=== PATIENT | female | born 1930 | race African-American/Black ===

== ENCOUNTER 2016-09-03 11:37 | Emergency (ER) | payer MEDICARE, MEDICAID ==
[~2016-09-03] VITALS: Ht 172.7 cm; Wt 68.0 kg
[~2016-09-03 11:37] MED LIST: IBUPROFEN600 MG ORAL
--- NOTE | 2016-09-03 12:55 | Emergency Room Report ---
History of Present Illness General Chief Complaint: Flu Like Symptoms Present Illness HPI The patient is an 86-year-old female presenting for one week of productive cough. The patient denies sick contacts or recent travel. The patient denies any pain. The patient denies any pulmonary medical history. The patient denies any other symptoms including fever, chills, night sweats, weight loss, hemoptysis, chest pain, shortness of breath (MERLIN EDWARDS P.A.) Allergies: Coded Allergies: CODEINE (Unverified Allergy, Unknown, 02/08/14) Patient History Past Medical History: see triage record Pertinent Family History: none Social History: Reports: smoking Reviewed Nursing Documentation: PMH: Agreed, PSxH: Agreed (MERLIN EDWARDS P.A.) Nursing Documentation-PMH Hx Gastrointestinal Problems: Yes - pt has transhepatic biliary implant (MERLIN EDWARDS P.A.) Review of Systems All Other Systems: negative except mentioned in HPI (MERLIN EDWARDS P.A.) Physical Exam Vital Signs Date Time Temp Pulse Resp B/P Pulse Ox O2 Delivery O2 Flow Rate FiO2 09/03/16 11:46 98.2 75 20 124/75 97 Room Air Sp02 EP Interpretation: reviewed, normal General Appearance: no apparent distress, alert, GCS 15, non-toxic Head: normocephalic, atraumatic Eyes: bilateral eye PERRL, bilateral eye normal inspection ENT: hearing grossly normal, normal pharynx, no angioedema, normal voice Neck: full range of motion, supple/symm/no masses Respiratory: chest non-tender, lungs clear, normal breath sounds, no respiratory distress, no accessory muscle use, speaking full sentences, wheezing - diffuse (MERLIN EDWARDS P.A.) Medical Decision Making PA Attestation Dr. Cooper is my supervising physician. Patient management was discussed with my supervising physician (MERLIN EDWARDS P.A.) Diagnostic Impression: Primary Impression: Bronchitis ER Course The patient is an 86-year-old female presenting for one week of productive cough. Differential diagnosis include but not limited to pharyngitis, sinusitis, AOM, bronchitis, PNA PE:vitals WNL. Afebrile HEENT unremarkable. Lungs have diffuse wheezing. CXR unremarkable. The pt will be treated for bronchitis and will FU with PMD. (MERLIN EDWARDS P.AAna Cristina) ER Course I agree with PA HPI and PE, as well as their assessment/plan. I also concur with PA review of imaging and rhythm strip without additional interpretation. (SALOME COOPER M.D.) Chest X-Ray Diagnostic Results EP Interpretation: Yes Findings: no consolidation, no effusion, no pneumothorax (MERLIN EDWARDS P.A.) Last Vital Signs Date Time Temp Pulse Resp B/P Pulse Ox O2 Delivery O2 Flow Rate FiO2 09/03/16 12:11 18 Room Air 09/03/16 11:46 98.2 75 124/75 97 Status: improved (MERLIN EDWARDS P.A.) Disposition: HOME, SELF-CARE Condition: Improved Scripts Guaifenesin/Dextromethorphan (Robitussin Cough-Chest Dm Liq) 118 Ml Liquid 10 ML PO Q4HR, #118 ML Prov: MERLIN EDWARDS P.A. 09/03/16 Albuterol Sulfate* (PROAIR HFA*) 8.5 Gm Hfa.aer.ad 2 PUFFS INH Q6H, #8.5 GM 0 Refills Prov: MERLIN EDWARDS P.A. 09/03/16 MERLIN EDWARDS P.A. Sep 03, 2016 12:55 SALOME COOPER M.D. Sep 06, 2016 03:49
[2016-09-03] MEDS ORDERED: PROAIR HFA8.5 GM INH (13:33)
[2016-09-03] MEDS ORDERED: ROBITUSSIN COU118 M4 PO (13:33)
[2016-09-03 13:40] VITALS: BP 121/74
[2016-09-03 13:41] VITALS: BP 121/74
--- NOTE | 2016-09-06 09:39 | Diagnostic Imaging Report ---
Indication: Cough Comparison: 02/08/14 A single view chest radiograph was obtained. Findings: No definite infiltrate or pulmonary vascular congestion identified. There is a pacemaker noted. This is on the left side of the chest with 2 leads. One of the leads projects over the right atrium appendage. The other lead projects over the right ventricle apex. The heart is enlarged. The aorta is mildly enlarged consistent with atherosclerotic vascular disease. The bones are osteopenic. Impression: No acute disease
== END 2016-09-03 13:42 | disposition home or self-care (01) ==
LOC: EMR 13:10
DX: J40 Bronchitis, not specified as acute or chronic (principal); F17.200 Nicotine dependence, unspecified, uncomplicated; Z88.6 Allergy status to analgesic agent
CPT/HCPCS: 71010; 99284

== ENCOUNTER 2018-02-03 12:55 | Emergency (ER) | payer MEDICARE, MEDICAID ==
[~2018-02-03] VITALS: Ht 172.7 cm; Wt 81.6 kg
[~2018-02-03 12:55] MED LIST changes: +PROAIR HFA8.5 GM INH; +ROBITUSSIN COU118 M4 PO
[2018-02-03 13:19] VITALS: BP 129/75
[2018-02-03] MEDS ORDERED: Albuterol/Ipratropium 3ml neb HHN ONE (13:30)
[2018-02-03] MEDS ORDERED: BACTRIM DS TAB1 EAC1 ORAL (14:30)
[2018-02-03] MEDS ORDERED: GUAIFENESIN DM118 M1 ORAL (14:30)
[2018-02-03] MEDS ORDERED: ALBUTEROL SULF8.5 GM INH (14:30)
[2018-02-03] MEDS ORDERED: TRAMADOL HCL50 MG ORAL (14:36)
--- NOTE | 2018-02-03 14:57 | Diagnostic Imaging Report ---
Indications: 8 out of 10 aching lower back pain nonradiating, worsened today but ongoing Technique: Spiral acquisitions obtained through the lumbar spine. Multiplanar reconstructions were generated. No IV contrast utilized. Total dose length product 296.46 mGycm. CTDIvol(s) 11.39 mGy. Dose reduction achieved using automated exposure control Comparison: none Findings: Bony alignment is normal. There is depression of the anterior aspect of the superior endplate of L2. There is mild central endplate depression of L3, with a central intravertebral disc herniation and surrounding sclerosis. There is generalized flattening with approximate 40% height loss of the L4 vertebral body. There is evidence of prior vertebral augmentation procedure of the segments. There is questionable mild endplate depression of the L5 vertebral body. No other evidence of acute fracture. No dislocations. There is degenerative narrowing and vacuum formation involving the bilateral sacroiliac joints. Bridging osteophytes are seen at L1-2. At L1-2, there is mild bilateral facet arthrosis. No significant disc bulge or protrusion, spinal stenosis, or neural foraminal stenosis. At L2-3, there is circumferential annular bulge. This results in borderline narrowing of the spinal canal. It may also result in mild compromise of the bilateral neural foramina, particularly the right. There is mild bilateral facet arthrosis. At L3-4, circumferential annular bulge, as well as marked ligamentum flavum hypertrophy, results in mild narrowing of the spinal canal. There is mild compromise of the left neural foramen, mild to moderate compromise of the right neural foramen. There is considerable facet arthrosis on the left. At L4-5, circumferential annular bulge and marked ligamentum flavum hypertrophy results in mild narrowing of the spinal canal. There is mild to moderate compromise of the bilateral neural foramina, predominantly due to the bulging disc and also due to facet hypertrophy. There is bilateral marked facet arthrosis. There is vacuum formation within the disc. At L5-S1, there is mild circumferential annular bulge. 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 There is mild bilateral neural foraminal compromise. Incidentally noted are bilateral renal calcifications, probably arterial. There are bilateral renal cysts. There is a right common iliac stent. Impression: Multiple superior endplate compression fracture deformities, as described above. Acuity indeterminate, although suspect mostly chronic. Consider MRI for more specific characterization of acuity indeterminate patient is candidate for percutaneous intervention. L4 compression fracture, presumably chronic given evidence of prior vertebral augmentation procedure No other acute fractures Degenerative changes, as detailed on a level by level basis above. Incidental finding of bilateral renal cysts, atherosclerotic calcifications, and right common iliac stent The CT scanner at [facility] is accredited by the [employer] and the scans are performed using protocols designed to limit radiation exposure to as low as reasonably achievable to attain images of sufficient resolution adequate for diagnostic evaluation.
--- NOTE | 2018-02-03 15:01 | Diagnostic Imaging Report ---
Indication: Shortness of breath Technique: One view of the chest Comparison: 09/03/2016 Findings: There is atelectasis at the left lung base. The lungs and pleural spaces are otherwise clear. There is a left chest biventricular AICD. The heart size is borderline enlarged. Impression: Borderline cardiomegaly Left basilar atelectasis No acute process otherwise
[2018-02-03 15:14] VITALS: BP 129/75
--- NOTE | 2018-02-04 07:06 | Emergency Room Report ---
History of Present Illness General Chief Complaint: Back Pain-No Injury Source: Patient Present Illness HPI Patient 87-year-old female who presented after increased low back pain. The patient had a prior history of back surgery. Patient noted have increased cough with worsening pain with coughing. She denies recent trauma. Patient prior history of compression fractures and kyphoplasty. The patient reports being a smoker. She denies feeling dizzy lightheaded. She had a productive cough Allergies: Coded Allergies: CODEINE (Unverified Allergy, Unknown, 02/08/14) Patient History Past Medical History: see triage record Now: No Reviewed Nursing Documentation: PMH: Agreed; PSxH: Agreed Nursing Documentation-PMH Past Medical History: No History, Except For Hx Pacemaker: Yes Hx Gastrointestinal Problems: Yes - pt has transhepatic biliary implant Review of Systems All Other Systems: negative except mentioned in HPI Physical Exam Vital Signs Date Time Temp Pulse Resp B/P (MAP) Pulse Ox O2 Delivery O2 Flow Rate FiO2 02/03/18 13:05 97.8 76 18 129/75 98 Room Air 97.9 General Appearance: well appearing, no apparent distress, alert, GCS 15 Head: normocephalic, atraumatic ENT: hearing grossly normal, normal voice Neck: full range of motion, supple Respiratory: no respiratory distress, speaking full sentences Cardiovascular #1: normal inspection, regular rate, rhythm Gastrointestinal: normal inspection, normal bowel sounds, non tender Musculoskeletal: no calf tenderness Neurologic: normal inspection, alert, oriented x3, normal gait Psychiatric: mood/affect normal Skin: no rash Medical Decision Making Diagnostic Impression: Primary Impression: Chronic back pain Additional Impression: COPD exacerbation ER Course Patient presented for back pain. Differential diagnosis included but was not limited to herniated disc, cauda equina syndrome, abdominal aortic aneurysm, perforated ulcer, spinal epidural abscess, spinal stenosis, lumbar fracture, metastatic lesion, pyelonephritis. CT imaging of the lumbar spine showed degenerative changes without evident fracture. A chest x-ray one view read by radiology showed COPD changes without evident infiltrate. The due to the patient's poor increased productive cough patient will be started on antibiotics.The patient is advised to follow up with primary care doctor in 1- 2 days. Patient is advised to return if any worsening condition or if any changes in status that are concerning. This report is dictated with [employer] pathology transcriptionist software which may occasionally lead to discrepancies related to use of this software. Last Vital Signs Date Time Temp Pulse Resp B/P (MAP) Pulse Ox O2 Delivery O2 Flow Rate FiO2 02/03/18 15:14 97.9 74 18 129/75 100 Room Air 97.9 Status: improved Disposition: HOME, SELF-CARE Condition: Stable Scripts Tramadol Hcl* (ULTRAM*) 50 Mg Tablet 50 MG ORAL Q12HR PRN for For Pain, #14 TAB 0 Refills Prov: Juan Keane MD 02/03/18 Trimethoprim/Sulfamethoxazole 160/800* (BACTRIM DS TABLET*) 1 Each Tablet 1 TAB ORAL TWICE A DAY, #14 TAB Prov: Juan Keane MD 02/03/18 Albuterol Sulfate* (ALBUTEROL SULFATE MDI*) 8.5 Gm Hfa.aer.ad 2 PUFF INH Q4H, #1 INH 0 Refills Prov: Juan Keane MD 02/03/18 Guaifenesin/Dextromethorphan (Guaifenesin Dm Syrup) 5 Ml Syrup 1 TSP ORAL Q8H, #118 ML 0 Refills Prov: Juan Keane MD 02/03/18 Referrals: NON PHYSICIAN (PCP) Patient Instructions: Back Pain, Adult, Chronic Obstructive Pulmonary Disease Exacerbation Juan Keane MD Feb 04, 2018 07:06
== END 2018-02-03 15:17 | disposition home or self-care (01) ==
LOC: EMR 13:15
DX: J44.1 Chronic obstructive pulmonary disease with (acute) exacerbation (principal); G89.29 Other chronic pain; M54.5 Low back pain; Z88.5 Allergy status to narcotic agent; Z95.0 Presence of cardiac pacemaker
CPT/HCPCS: 71045; 72131; 94640; 94664; 99284; J7620

== ENCOUNTER 2018-02-20 18:05 | Emergency (ER) | payer MEDICARE, MEDICAID ==
[~2018-02-20] VITALS: Ht 170.2 cm; Wt 77.1 kg
[~2018-02-20 18:05] MED LIST changes: +ALBUTEROL SULF8.5 GM INH; +BACTRIM DS TAB1 EAC1 ORAL; +GUAIFENESIN DM118 M1 ORAL; +TRAMADOL HCL50 MG ORAL
[2018-02-20] MEDS ORDERED: Sodium Chloride 500ML 500 ML IV ONE (18:41)
[2018-02-20 18:45] VITALS: BP 113/55
[2018-02-20 19:29] LABS: ANION GAP 9 mmol/L (5-15); BLOOD UREA NITROGEN 47 mg/dL (7-18); CALCIUM 9.8 MG/DL (8.5-10.1); CARBON DIOXIDE 23 MMOL/L (21-32); CHLORIDE 101 MMOL/L (98-107); CREATININE 2.3 MG/DL (0.55-1.30); POTASSIUM 3.9 MMOL/L (3.5-5.1); SODIUM 133 MMOL/L (136-145)
[2018-02-20 19:36] LABS: EOSINOPHILS % (AUTO) 1.5 % (0.0-3.0); HEMATOCRIT 38.8 % (37.0-47.0); HEMOGLOBIN 12.6 G/DL (12.0-16.0); MEAN CORPUSCULAR VOLUME 83 FL (80-99); MONOCYTES % (AUTO) 12.2 % (1.0-10.0); NEUTROPHILS % (AUTO) 64.4 % (45.0-75.0); PLATELET COUNT 192 K/UL (150-450); RED BLOOD COUNT 4.69 M/UL (4.20-5.40); RED CELL DISTRIBUTION WIDTH 14.2 % (11.6-14.8); WHITE BLOOD COUNT 4.7 K/UL (4.8-10.8)
[2018-02-20 19:53] LABS: ALANINE AMINOTRANSFERASE 20 U/L (12-78); ALBUMIN 3.8 G/DL (3.4-5.0); ALKALINE PHOSPHATASE 175 U/L (46-116); ASPARTATE AMINO TRANSFERASE 23 U/L (15-37); BILIRUBIN,TOTAL 0.5 MG/DL (0.2-1.0); CREATINE KINASE 48 U/L (26-308)
[2018-02-20 21:09] LABS: APPEARANCE,URINE CLEAR; BILIRUBIN, URINE NEGATIVE (NEGATIVE); GLUCOSE, URINE (UA) NEGATIVE (NEGATIVE); KETONES,URINE 1+ (NEGATIVE); LEUKOCYTE ESTERASE ,URINE NEGATIVE (NEGATIVE); NITRITE,URINE NEGATIVE (NEGATIVE); PH,URINE 5 (4.5-8.0); PROTEIN,URINE NEGATIVE (NEGATIVE); UROBILINOGEN,URINE 1 MG/DL (0.0-1.0)
[2018-02-20 21:12] LABS: COLOR,URINE YELLOW
[2018-02-20 21:35] VITALS: BP 113/55
--- NOTE | 2018-02-21 00:07 | Emergency Room Report ---
History of Present Illness General Chief Complaint: Generalized Weakness Source: Patient Present Illness HPI This is an 87-year-old female who presented after increased generalized weakness. Patient had prior history of COPD as well as CHF. Patient was noted to have prior history of low back pain. Patient is chronically ill. Patient states that she had been having increased difficulty with feeling increasingly tired. She reported having some increased left-sided chest pain. Allergies: Coded Allergies: CODEINE (Unverified Allergy, Unknown, 02/08/14) Patient History Past Medical History: see triage record Last Menstrual Period: NA Reviewed Nursing Documentation: PMH: Agreed; PSxH: Agreed Nursing Documentation-PMH Past Medical History: No History, Except For Hx Pacemaker: Yes Hx Gastrointestinal Problems: Yes - pt has transhepatic biliary implant Review of Systems All Other Systems: negative except mentioned in HPI Physical Exam Vital Signs Date Time Temp Pulse Resp B/P (MAP) Pulse Ox O2 Delivery O2 Flow Rate FiO2 02/20/18 18:27 98.0 74 18 101/62 97 Room Air 98.1 General Appearance: alert, GCS 15, thin, Chronically Ill Neck: limited range of motion Respiratory: normal breath sounds, no rhonchi Cardiovascular #1: normal inspection, regular rate, rhythm, edema Gastrointestinal: normal inspection, non tender, soft Musculoskeletal: normal inspection, back normal Neurologic: normal inspection, alert, oriented x3, responsive, dealer sales manager III-XII nml as tested, motor strength/tone normal Skin: pallor Medical Decision Making Diagnostic Impression: Primary Impression: COPD exacerbation Additional Impressions: CHF (congestive heart failure) Heat exhaustion ER Course PPatient presented for generalized weakness. Differential diagnosis included was not limited to anemia, urinary tract infection, electrolyte abnormality, hypothyroidism, myocardial infarction, myasthenia gravis, dehydration, among others. Because of complexity of patient's case laboratory testing and imaging studies were ordered.The patient stated that she had some sharp pain in the left chest which is likely her AICD firing. EKG interpreted by me showed atrial paced rhythm without acute ST or T wave changes. Patient's laboratory testing was noted to have markedly elevated BNP consistent with a heart failure. The patient was advised that she appeared ill and would likely benefit from admission. The patient stated she felt better and wanted to go home. The patient was advised risk benefits alternatives of leaving AGAINST MEDICAL ADVICE and he indicated understanding and all questions are answered patient still continued want to leave and signed AGAINST MEDICAL ADVICE. Despite risks including but not limited to disability and worsening of current lifestyle. The patient is advised to return at any time. Labs Test 02/20/18 18:55 02/20/18 20:46 White Blood Count 4.7 K/UL (4.8-10.8) Red Blood Count 4.69 M/UL (4.20-5.40) Hemoglobin 12.6 G/DL (12.0-16.0) Hematocrit 38.8 % (37.0-47.0) Mean Corpuscular Volume 83 FL (80-99) Mean Corpuscular Hemoglobin 26.9 PG (27.0-31.0) Mean Corpuscular Hemoglobin Concent 32.5 G/DL (32.0-36.0) Red Cell Distribution Width 14.2 % (11.6-14.8) Platelet Count 192 K/UL (150-450) Mean Platelet Volume 6.8 FL (6.5-10.1) Neutrophils (%) (Auto) 64.4 % (45.0-75.0) Lymphocytes (%) (Auto) 19.0 % (20.0-45.0) Monocytes (%) (Auto) 12.2 % (1.0-10.0) Eosinophils (%) (Auto) 1.5 % (0.0-3.0) Basophils (%) (Auto) 3.0 % (0.0-2.0) Prothrombin Time 10.6 SEC (9.30-11.50) Prothromb Time International Ratio 1.0 (0.9-1.1) Activated Partial Thromboplast Time 27 SEC (23-33) Sodium Level 133 MMOL/L (136-145) Potassium Level 3.9 MMOL/L (3.5-5.1) Chloride Level 101 MMOL/L (98-107) Carbon Dioxide Level 23 MMOL/L (21-32) Anion Gap 9 mmol/L (5-15) Blood Urea Nitrogen 47 mg/dL (7-18) Creatinine 2.3 MG/DL (0.55-1.30) Estimat Glomerular Filtration Rate mL/min (>60) Glucose Level 102 MG/DL (74-106) Calcium Level 9.8 MG/DL (8.5-10.1) Total Bilirubin 0.5 MG/DL (0.2-1.0) Aspartate Amino Transf (AST/SGOT) 23 U/L (15-37) Alanine Aminotransferase (ALT/SGPT) 20 U/L (12-78) Alkaline Phosphatase 175 U/L (46-116) Total Creatine Kinase 48 U/L (26-308) Creatine Kinase MB 1.0 NG/ML (0.0-3.6) Creatine Kinase MB Relative Index 2.0 Troponin I 0.040 ng/mL (0.000-0.056) Pro-B-Type Natriuretic Peptide 1037 pg/mL (0-125) Total Protein 7.7 G/DL (6.4-8.2) Albumin 3.8 G/DL (3.4-5.0) Globulin 3.9 g/dL Albumin/Globulin Ratio 1.0 (1.0-2.7) Urine Color Yellow Urine Appearance Clear Urine pH 5 (4.5-8.0) Urine Specific [place] 1.020 (1.005-1.035) Urine Protein Negative (NEGATIVE) Urine Glucose (UA) Negative (NEGATIVE) Urine Ketones 1+ (NEGATIVE) Urine Occult Blood 1+ (NEGATIVE) Urine Nitrite Negative (NEGATIVE) Urine Bilirubin Negative (NEGATIVE) Urine Urobilinogen 1 MG/DL (0.0-1.0) Urine Leukocyte Esterase Negative (NEGATIVE) Urine RBC 2-4 /HPF (0 - 2) Urine WBC 2-4 /HPF (0 - 2) Urine Squamous Epithelial Cells Few /LPF (NONE/OCC) Urine Bacteria Few /HPF (NONE) Urine Fine Granular Casts 0-2 /LPF (NONE) Last Vital Signs Date Time Temp Pulse Resp B/P (MAP) Pulse Ox O2 Delivery O2 Flow Rate FiO2 02/20/18 18:45 98.1 75 18 113/55 100 Room Air 98.1 Status: unchanged Disposition: AGAINST MEDICAL ADVICE Condition: Serious Referrals: NON PHYSICIAN (PCP) Patient Instructions: Heat Exhaustion Information, Near-Syncope, [id number] Juan Keane MD Feb 21, 2018 00:07
--- NOTE | 2018-02-21 11:45 | Diagnostic Imaging Report ---
Indication: Dyspnea Comparison: 02/03/2018 A single view chest radiograph was obtained. Findings: Surgical clips in left axilla demonstrated. Pacemaker again noted. No definite infiltrate or pulmonary vascular congestion identified. The heart is enlarged. The aorta is mildly enlarged consistent with atherosclerotic vascular disease. The bones are osteopenic. Impression: No acute disease
== END 2018-02-20 21:34 | disposition left against medical advice (07) ==
LOC: EMR 19:25
DX: J44.1 Chronic obstructive pulmonary disease with (acute) exacerbation (principal); I50.9 Heart failure, unspecified; Z88.6 Allergy status to analgesic agent; Z95.0 Presence of cardiac pacemaker; T67.5XXA Heat exhaustion, unspecified, initial encounter; X30.XXXA Exposure to excessive natural heat, initial encounter; Y92.9 Unspecified place or not applicable
CPT/HCPCS: 36415; 71045; 80053; 81003; 82550; 82553; 83880; 84484; 85025; 85610; 85730; 93005; 99283; J2405; J7040